=== PATIENT | female | born 1955 | race Caucasian/White ===

== ENCOUNTER 2024-02-25 08:28 | Outpatient (CLI) | payer MEDICARE, OTHER, SELFPAY | END 2024-02-25 08:29 | disposition home or self-care (01) | PROVIDERS: PCP Nurse Practitioner Family; Visit Provider Nurse Practitioner Family | DX: Z00.00 Encounter for general adult medical examination without abnormal findings (principal); L03.90 Cellulitis, unspecified; E78.5 Hyperlipidemia, unspecified; R73.03 Prediabetes; Z13.228 Encounter for screening for other metabolic disorders; Z13.0 Encounter for screening for diseases of the blood and blood-forming organs and certain disorders involving the immune mechanism | CPT/HCPCS: 80053; 80061; 85025; 87070 ==

== ENCOUNTER 2024-03-09 07:27 | Outpatient (CLI) | payer MEDICARE, OTHER, SELFPAY ==
--- NOTE | 2024-03-09 07:45 | CRLHL7_ITS ---
For Patients: As a result of the Century Cures Act, medical imaging exams and procedure reports are released immediately into your electronic medical record. You may view this report before your referring provider. If you have questions, please contact your health care provider. DIGITAL DIAGNOSTIC BILATERAL MAMMOGRAM USING TOMOSYNTHESIS AND COMPUTER-AIDED DETECTION RIGHT BREAST ULTRASOUND CLINICAL HISTORY: RIGHT breast skin rash. COMPARISON: 12/04/2022, 11/19/2018. TECHNIQUE: Digital BILATERAL mammogram in four projections with computer-aided detection. Tomosynthesis was used in this interpretation. Real-time ultrasound imaging of RIGHT breast with imaging documentation. BREAST COMPOSITION: There are areas of scattered fibroglandular density. FINDINGS: 3D CC/MLO BILATERAL mammogram images submitted. Biopsy clip present on the RIGHT. No suspicious masses or architectural distortion. Mild skin thickening may be present on the RIGHT. No suspicious calcifications. Targeted RIGHT breast ultrasound performed in the area of concern at 9-12 o`clock 5 cm from the nipple. No fluid collection or mass. No suspicious findings. IMPRESSION: Mild skin thickening may be present on the RIGHT corresponding to the area skin rash. No underlying pathology. RECOMMENDATIONS: Consider punch skin biopsy for further evaluation to exclude inflammatory breast cancer. Results and recommendations discussed with the patient. BI-RADS Category 2: Benign A lay language report of this examination will be provided to the patient. Dictated by Mahesh Fonseca MD @ 03/09/2024 9:26:27 AM /Dictated by: Mahesh Fonseca MD @ 03/09/2024 9:26:00 AM (Electronically Signed)
--- NOTE | 2024-03-09 08:15 | CRLHL7_ITS ---
For Patients: As a result of the Cures Act, medical imaging exams and procedure reports are released immediately into your electronic medical record. You may view this report before your referring provider. If you have questions, please contact your health care provider. PLEASE SEE DIGITAL DIAGNOSTIC BILATERAL MAMMOGRAM PERFORMED SAME DAY CRL:[email or web address] braden/Dictated by: Mahesh Fonseca MD @ 03/09/2024 9:26:00 AM (Electronically Signed)
== END 2024-03-09 07:28 | disposition home or self-care (01) ==
LOC: MAMMO 07:29
PROVIDERS: PCP Nurse Practitioner Family; Visit Provider Nurse Practitioner Family
DX: R21 Rash and other nonspecific skin eruption (principal); N64.59 Other signs and symptoms in breast
CPT/HCPCS: 76642; 77066; G0279